=== PATIENT | male | born 1980 | race Two or more races ===

== ENCOUNTER 2017-02-03 08:32 | Inpatient (IN) | payer SELFPAY ==
[~2017-02-03] VITALS: Ht 172.7 cm; Wt 81.4 kg
[2017-02-03] MEDS ORDERED: ONDANSETRON PF 4 MG/2 ML VIAL. IV ONE (09:00)
[2017-02-03] MEDS ORDERED: fentaNYL PF VIAL 100 MCG/2 ML VIAL IV PRN ×2 (09:00→10:45)
--- NOTE | 2017-02-03 09:04 | PHYS DOC ---
Past Medical History Past Medical History: No Pertinent History Past Surgical History: Cholecystectomy Additional Past Surgical Histo: R LEG SX Alcohol Use: None Drug Use: None Adult General Chief Complaint Chief Complaint: ABDOMINAL PAIN HPI HPI Patient is a 36 year old male who presents with complaint of right upper quadrant abdominal and right flank pain. Patient states his symptoms have been worsening over the past 2 days. The patient was recently admitted to the hospital for treatment of acute cholecystitis and acute choledocholithiasis. Patient underwent an ERCP and cholecystectomy while in the hospital. The patient was noted to have elevated bilirubin levels and transaminase levels secondary to his condition. The patient initially improved and was discharged on January 21 with recommended follow-up in Dr. Valenzuela's clinic for removal of his KARYNA drain. The patient has not had this follow-up since his discharge. Patient states that he has been having worsening pain to his right upper quadrant which initially improved with use of pain medication. Patient states however says it wears off he starts having severe pain. Patient currently rates pain as 9 out of 10. Patient denies any nausea or vomiting. Patient states that he has had decreased output from his KARYNA drain but does state that it has been darker in appearance and has been more cloudy. Review of Systems Review of Systems Constitutional: Denies fever or chills [] Eyes: Denies change in visual acuity, redness, or eye pain [] HENT: Denies nasal congestion or sore throat [] Respiratory: Denies cough or shortness of breath [] Cardiovascular: Denies chest pain or edema[] GI: Abdominal pain, denies vomiting[] : Denies dysuria or hematuria [] Musculoskeletal: Denies back pain or joint pain [] Integument: Denies rash or skin lesions [] Neurologic: Denies headache, focal weakness or sensory changes [] All other systems were reviewed and found to be within normal limits, except as documented in this note. Current Medications Current Medications Current Medications Medications (Trade) Dose Ordered Sig/Roaxne Start Time Stop Time Status Last Admin Dose Admin Fentanyl Citrate (Fentanyl 2ml Vial) 50 mcg PRN Q15MIN PRN 02/03/17 09:00 02/04/17 08:59 02/03/17 09:21 50 MCG Ondansetron HCl (Zofran) 4 mg 1X ONCE 02/03/17 09:00 02/03/17 09:01 DC 02/03/17 09:20 4 MG Sodium Chloride 1,000 ml @ 2,310 mls/hr Q26M 02/03/17 08:56 02/03/17 09:56 DC 02/03/17 09:22 2,310 MLS/HR Allergies Allergies Allergies Coded Allergies Type Severity Reaction Last Updated Verified No Known Drug Allergies 01/19/17 No Physical Exam Physical Exam Constitutional: Alert, afebrile, appears in moderate to severe discomfort. [] HENT: Normocephalic, atraumatic, bilateral external ears normal, oropharynx moist, no oral exudates, nose normal. [] Eyes: PERRLA, EOMI, conjunctiva normal, no discharge. [] Neck: Normal range of motion, no tenderness, supple, no stridor. [] Cardiovascular: Tachycardia, regular rhythm, no murmur [] Lungs & Thorax: Bilateral breath sounds clear to auscultation [] Abdomen: Hypoactive bowel sounds, soft, right upper quadrant tenderness to palpation near KARYNA drain site, no masses, no pulsatile masses. [] Skin: Warm, dry, no erythema, no rash. [] Back: No tenderness, no CVA tenderness. [] Extremities: No tenderness, no cyanosis, no clubbing, ROM intact, no edema. [] Neurologic: Alert and oriented X 3, normal motor function, normal sensory function, no focal deficits noted. [] Current Patient Data Vital Signs Vital Signs Date Time Temp Pulse Resp B/P (MAP) Pulse Ox O2 Delivery O2 Flow Rate FiO2 02/03/17 10:10 98 14 114/78 (90) 98 Room Air 02/03/17 08:46 99.8 99.8 Lab Values Laboratory Tests Test 02/03/17 09:03 02/03/17 10:22 White Blood Count 14.5 x10^3/uL (4.0-11.0) H Red Blood Count 4.97 x10^6/uL (4.30-5.70) Hemoglobin 14.5 g/dL (13.0-17.5) Hematocrit 44.0 % (39.0-53.0) Mean Corpuscular Volume 89 fL (79-100) Mean Corpuscular Hemoglobin 29 pg (25-35) Mean Corpuscular Hemoglobin Concent 33 g/dL (31-37) Red Cell Distribution Width 14.1 % (11.5-14.5) Platelet Count 301 x10^3/uL (140-400) Neutrophils (%) (Auto) 77 % (31-73) H Lymphocytes (%) (Auto) 14 % (24-48) L Monocytes (%) (Auto) 7 % (0-9) Eosinophils (%) (Auto) 1 % (0-3) Basophils (%) (Auto) 1 % (0-3) Neutrophils # (Auto) 11.2 x10^3uL (1.8-7.7) H Lymphocytes # (Auto) 2.0 x10^3/uL (1.0-4.8) Monocytes # (Auto) 1.1 x10^3/uL (0.0-1.1) Eosinophils # (Auto) 0.1 x10^3/uL (0.0-0.7) Basophils # (Auto) 0.1 x10^3/uL (0.0-0.2) Sodium Level 137 mmol/L (136-145) Potassium Level 3.7 mmol/L (3.5-5.1) Chloride Level 100 mmol/L (98-107) Carbon Dioxide Level 28 mmol/L (21-32) Anion Gap 9 (6-14) Blood Urea Nitrogen 14 mg/dL (8-26) Creatinine 0.9 mg/dL (0.7-1.3) Estimated GFR (Cockcroft-Gault) 95.5 BUN/Creatinine Ratio 16 (6-20) Glucose Level 94 mg/dL (70-99) Lactic Acid Level 1.2 mmol/L (0.4-2.0) Calcium Level 9.4 mg/dL (8.5-10.1) Total Bilirubin 1.8 mg/dL (0.2-1.0) H Aspartate Amino Transferase (AST) 38 U/L (15-37) H Alanine Aminotransferase (ALT) 104 U/L (16-63) H Alkaline Phosphatase 180 U/L (46-116) H Total Protein 8.0 g/dL (6.4-8.2) Albumin 3.1 g/dL (3.4-5.0) L Albumin/Globulin Ratio 0.6 (1.0-1.7) L Lipase 64 U/L (73-393) L Urine Collection Type Unknown Urine Color [place] Urine Clarity Clear Urine pH 6.0 Urine Specific [place] >=1.030 Urine Protein 30 mg/dL (NEG-TRACE) Urine Glucose (UA) Negative mg/dL (NEG) Urine Ketones (Stick) >=80 mg/dL (NEG) Urine Blood Negative (NEG) Urine Nitrite Negative (NEG) Urine Bilirubin Moderate (NEG) Urine Urobilinogen Dipstick 4.0 mg/dL (0.2 mg/dL) Urine Leukocyte Esterase Small (NEG) Urine RBC 0 /HPF (0-2) Urine WBC 0 /HPF (0-4) Urine Bacteria Moderate /HPF (0-FEW) Urine Mucus Marked /LPF Laboratory Tests 02/03/17 09:03 Laboratory Tests 02/03/17 09:03 EKG EKG Interpreted by me: Heart rate 105, sinus tachycardia, normal intervals, normal axis, no acute ST/T-wave abnormalities present[] Radiology/Procedures Radiology/Procedures [facility] [address] [place] [address] IMAGING REPORT Signed PATIENT: VIRAL FARIAS ACCOUNT: [id number] : 1980 LOCATION: [address] [place] [address] AGE: 36 SEX: M EXAM STATUS: ADM IN ORD. PHYSICIAN: DU BRITO MD REASON: right upper quadrant pain, recent cholecystectomy PROCEDURE: CT ABD PELV W/ IV CONTRST ONLY CT of the abdomen and pelvis with contrast 02/03/2017 Indication: Right upper abdominal pain. Recent cholecystectomy. Comparison study: CT of the abdomen and pelvis with contrast January 12, 2017. Technique: Multidetector CT imaging of the abdomen and pelvis was performed following the administration of IV contrast. Findings: Linear opacities noted in the bilateral lung bases consistent with discoid atelectasis. The liver is unremarkable in appearance. No intrahepatic biliary dilatation is seen. Surgical clips in the gallbladder fossa noted consistent with prior history of recent cholecystectomy. Scant amount of fluid and gas is seen in the gallbladder fossa most likely postoperative in nature. There is a surgical drain in place extending throughout the right upper quadrant into the right mid abdomen.. There is inflammatory change surrounding the drainage catheter within the adjacent mesenteric fat. No loculated fluid collection or abscess is identified. Correlate with drain output. The spleen, adrenal glands, kidneys, and pancreas are grossly unremarkable. There is no evidence of bowel obstruction. The appendix is unremarkable in appearance. Bladder is grossly unremarkable. No acute osseous changes are seen. Impression: Postsurgical changes consistent with recent cholecystectomy. There is a right-sided surgical drain in place with adjacent inflammatory changes within the mesentery. No loculated fluid collection or abscess is identified. Correlate with drain output. No other acute intra-abdominal abnormality is identified DICTATED and SIGNED BY: SABRINA FANG MD DATE: 02/03/17 1113 CC: DU BRITO MD; MUSTAPHA DEL VALLE MD; KIMANI GARCIA M.D. ~ [] Course & Med Decision Making Course & Med Decision Making Pertinent Labs and Imaging studies reviewed. (See chart for details) Patient started on IV fluids in the emergency department with improvement in heart rate. Based off of exam and lab work, I am suspicious that the patient's symptoms could be due to possible postoperative infection at the KARYNA drain site. I spoke with Dr. Valenzuela of general surgery. He agreed with initiation of antibiotics and agreed to consult on patient in hospital for further care. I spoke with Dr. Del Valle who accepted care patient in hospital. Patient started on IV vancomycin and Zosyn. Dragon Disclaimer Dragon Disclaimer This electronic medical record was generated, in whole or in part, using a voice recognition dictation system. Departure Departure Impression: Primary Impression: Sepsis Additional Impressions: Abdominal pain Elevated transaminase level Disposition: ADMITTED INPATIENT Admitting Physician: Other Condition: GUARDED Referrals: KIMANI GARCIA M.D. (PCP) Scripts No Active Prescriptions or Reported Meds Problem Qualifiers Primary Impression: Sepsis Sepsis type: sepsis due to unspecified organism Qualified Codes: A41.9 - Sepsis, unspecified organism Additional Impressions: Abdominal pain Abdominal location: right upper quadrant Qualified Codes: R10.11 - Right upper quadrant pain DU BRITO MD Feb 03, 2017 09:04
[2017-02-03] MEDS: IV NORMAL SALINE 1000ML BAG 1,000 ML IV SCH ×5 (09:21→17:35)
--- NOTE | 2017-02-03 09:22 | EKG ---
[facility] [address] [place] [address] Test Date: 2017-02-03 Test Time: 09:18:01 Pat Name: VIRAL FARIAS Department: Room: Gender: M [employer] Operator: : 1980 Requested By: DU BRITO Order Number: [id number] Reading MD: Golden Roberts Measurements Intervals [place] Rate: 105 P: 25 MN: 154 QRS: 56 QRSD: 90 T: 31 QT: 310 QTc: 413 Interpretive Statements SINUS TACHYCARDIA Electronically Signed On 02-13-2017 14:09:59 [employer] by Golden Roberts
[2017-02-03 09:42] LABS: CALCIUM 9.4 mg/dL (8.5-10.1); CREATININE 0.9 mg/dL (0.7-1.3); GFR 95.5; POTASSIUM 3.7 mmol/L (3.5-5.1)
[2017-02-03 10:09] LABS: ALBUMIN 3.1 g/dL (3.4-5.0); ALBUMIN/GLOBULIN RATIO 0.6 (1.0-1.7); TOTAL BILIRUBIN 1.8 mg/dL (0.2-1.0)
[2017-02-03 10:19] LABS: BASO # 0.1 x10^3/uL (0.0-0.2); BASO % 1 % (0-3); EOS % 1 % (0-3); HEMOGLOBIN 14.5 g/dL (13.0-17.5); LYMPH % 14 % (24-48); MEAN CORPUSCULAR HEMOGLOBIN 29 pg (25-35); MEAN CORPUSCULAR HGB CONC 33 g/dL (31-37); MEAN CORPUSCULAR VOLUME 89 fL (79-100); MONO % 7 % (0-9); NEUT % 77 % (31-73); PLATELET COUNT 301 x10^3/uL (140-400); RED BLOOD COUNT 4.97 x10^6/uL (4.30-5.70); RED CELL DISTRIBUTION WIDTH 14.1 % (11.5-14.5); WHITE BLOOD COUNT 14.5 x10^3/uL (4.0-11.0)
[2017-02-03 10:36] LABS: BILIRUBIN,URINE MODERATE (NEG); GLUCOSE,URINE NEGATIVE (NEG); NITRITE,URINE NEGATIVE (NEG); PROTEIN,URINE 30 mg/dL (NEG-TRACE)
[2017-02-03] MEDS ORDERED: ONDANSETRON PF 4 MG/2 ML VIAL. IV PRN (10:45)
[2017-02-03] MEDS ORDERED: PIP/TAZO PER PHARMACY MC PRN (10:45)
[2017-02-03] MEDS ORDERED: CONTRAST GIVEN MC PRN (10:45)
[2017-02-03] MEDS ORDERED: IOHEXOL 300 MG/ML 100ML VIAL. IV ONE (10:45)
[2017-02-03] MEDS ORDERED: ACETAMINOPHEN 325 MG TABLET. PO PRN (10:45)
[2017-02-03 10:53] LABS: BACTERIA,URINE MODERATE /HPF (0-FEW); RBC,URINE 0 /HPF (0-2); WBC,URINE 0 /HPF (0-4)
[2017-02-03] MEDS ORDERED: VANCOMYCIN 2 GM in IV DEXTROSE 5 %-0.2 % NACL 500 ML IV ONE (11:00)
[2017-02-03] MEDS ORDERED: PIPERACILLIN/TAZO IV Push 3.375 GM VIAL. IVP ONE (11:00)
--- NOTE | 2017-02-03 11:27 | RAD ---
CT of the abdomen and pelvis with contrast 02/03/2017 Indication: Right upper abdominal pain. Recent cholecystectomy. Comparison study: CT of the abdomen and pelvis with contrast January 12, 2017. Technique: Multidetector CT imaging of the abdomen and pelvis was performed following the administration of IV contrast. Findings: Linear opacities noted in the bilateral lung bases consistent with discoid atelectasis. The liver is unremarkable in appearance. No intrahepatic biliary dilatation is seen. Surgical clips in the gallbladder fossa noted consistent with prior history of recent cholecystectomy. Scant amount of fluid and gas is seen in the gallbladder fossa most likely postoperative in nature. There is a surgical drain in place extending throughout the right upper quadrant into the right mid abdomen.. There is inflammatory change surrounding the drainage catheter within the adjacent mesenteric fat. No loculated fluid collection or abscess is identified. Correlate with drain output. The spleen, adrenal glands, kidneys, and pancreas are grossly unremarkable. There is no evidence of bowel obstruction. The appendix is unremarkable in appearance. Bladder is grossly unremarkable. No acute osseous changes are seen. Impression: Postsurgical changes consistent with recent cholecystectomy. There is a right-sided surgical drain in place with adjacent inflammatory changes within the mesentery. No loculated fluid collection or abscess is identified. Correlate with drain output. No other acute intra-abdominal abnormality is identified
[2017-02-03] MEDS: VANCOMYCIN PER PHARMACY MC PRN (11:32)
[2017-02-03 12:48] VITALS: BP 114/77
[2017-02-03 12:50] VITALS: BP 114/77
--- NOTE | 2017-02-03 14:14 | PDOC2 ---
CONSULT Date of Consult Date of Consult DATE: 02/03/17 TIME: 14:12 History of Present Illness Reason for Visit: The patient is a 36 year old male with recent history of lap carlo, ERCP and stone extraction X 2. Had drain placed with FU appt next week in office for drain removal. He reported to the ER with sharp Rt sided abdominal pain, no nausea or vomiting. Past Medical History Past Medical History denies Past Surgical History Past Surgical History lap carlo, ERCP Social History No ALCOHOL: rare Drugs: None Current Problem List Problem List Problems Medical Problems: (1) Elevated transaminase level Status: Acute Current Medications Current Medications Current Medications Sodium Chloride 1,000 ml @ 2,310 mls/hr Q26M IV Last administered on 09:22; Start 02/03/17 at 08:56; Stop 02/03/17 at 09:56; Status DC Fentanyl Citrate (Fentanyl 2ml Vial) 50 mcg PRN Q15MIN PRN IV PAIN GREATER THAN 3/10 Last administered on 02/03/17 09:21; Start 02/03/17 at 09:00; Stop 02/04/17 at 08:59 Ondansetron HCl (Zofran) 4 mg 1X ONCE IV Last administered on 02/03/17 09:20 ; Start 02/03/17 at 09:00; Stop 02/03/17 at 09:01; Status DC Iohexol (Omnipaque 300 Mg/ml) 75 ml 1X ONCE IV Last administered on 11:09; Start 02/03/17 at 10:45; Stop 02/03/17 at 10:46; Status DC Info (Do NOT chart on this entry -- for MONITORING) 1 each PRN DAILY PRN MC SEE COMMENTS; Start 02/03/17 at 10:45; Stop 02/05/17 at 10:44 Ondansetron HCl (Zofran) 4 mg PRN Q8HRS PRN IV NAUSEA/VOMITING; Start at 10:45; Stop 02/04/17 at 10:44 Fentanyl Citrate (Fentanyl 2ml Vial) 50 mcg PRN Q2HR PRN IV PAIN Last administered on 02/03/17 13:36; Start 02/03/17 at 10:45; Stop 02/04/17 at 10 :44 Sodium Chloride 1,000 ml @ 150 mls/hr Q6H40M IV Last administered on 13:36; Start 02/03/17 at 10:44; Stop 02/04/17 at 10:43 Acetaminophen (Tylenol) 650 mg PRN Q4HRS PRN PO FEVER; Start 02/03/17 at 10:45 ; Stop 02/04/17 at 10:44 Vancomycin HCl (Vanco Per Pharmacy) 1 each PRN DAILY PRN MC SEE COMMENTS Last administered on 02/03/17 11:32; Start 02/03/17 at 10:45 Piperacillin Sod/ Tazobactam Sod (Zosyn Per Pharmacy) 1 each PRN DAILY PRN MC SEE COMMENTS; Start 02/03/17 at 10:45 Vancomycin HCl 2 gm/Dextrose/ Sodium Chloride 500 ml @ 250 mls/hr 1X ONCE IV Last administered on 02/03/17 11:26; Start 02/03/17 at 11:00; Stop 02/03/17 at 12:59; Status DC Piperacillin Sod/ Tazobactam Sod (Zosyn) 3.375 gm 1X ONCE IVP Last administered on 02/03/17 11:18; Start 02/03/17 at 11:00; Stop 02/03/17 at 11 :01; Status DC Piperacillin Sod/ Tazobactam Sod (Zosyn) 3.375 gm Q6HRS IVP ; Start 02/03/17 at 18:00 Vancomycin HCl 1.25 gm/Dextrose 250 ml @ 167 mls/hr Q8H IV ; Start 02/03/17 at 19:30 Vancomycin HCl 1 each 1X ONCE MC ; Start 02/04/17 at 11:00; Stop 02/04/17 at 11:01 Active Scripts Active No Active Prescriptions or Reported Medications Allergies Allergies: Coded Allergies: No Known Drug Allergies (Unverified , 01/19/17) ROS General: No: Chills, Night Sweats, Fatigue, Malaise, Appetite, Other PSYCHOLOGICAL ROS: No: Anxiety, Behavioral Disorder, Concentration difficultie , Decreased libido, Depression, Disorientation, Hallucinations, Hostility, Irritablity, Memory difficulties, Mood Swings, Obsessive thoughts, Physical abuse, Sexual abuse, Sleep disturbances, Suicidal ideation, Other Eyes: No Blurry vision, No Decreased vision, No Double vision, No Dry eyes, No Excessive tearing, No Eye Pain, No Itchy Eyes, No Loss of vision, No Photophobia , No Scotomata, No Uses contacts, No Uses glasses, No Other HEENT: No: Heacaches, Visual Changes, Hearing change, Nasal congestion, Nasal discharge, Oral lesions, Sinus pain, Sore Throat, Epistaxis, Sneezing, Snoring, Tinnitus, Vertigo, Vocal changes, Other ALLERGY AND IMMUNOLOGY: No: Hives, Insect Bite Sensitivity, Itchy/Watery Eyes, Nasal Congestion, Post Nasal Drip, Seasonal Allergies, Other Hematological and Lymphatic: No: Bleeding Problems, Blood Clots, Blood Transfusions, Brusing, Night Sweats, Pallor, Swollen Lymph Nodes, Other Respiratory: No: Cough, Hemoptysis, Orthopnea, Pleuritic Pain, Shortness of breath, SOB with excertion, Sputum Changes, Stridor, Tachypnea, Wheezing, Other Cardiovascular: No Chest Pain, No Palpitations, No Orthopnea, No Paroxysmal Noc. Dyspnea, No Edema, No Lt Headedness, No Other Gastrointestinal: Yes Abdominal Pain Genitourinary: No Dysuria, No Frequency, No Incontinence, No Hematuria, No Retention, No Discharge, No Urgency, No Pain, No Flank Pain, No Other, No , No , No , No , No , No , No Musculoskeletal: No Gait Disturbance, No Joint Pain, No Joint Stiffness, No Joint Swelling, No Muscle Pain, No Muscular Weakness, No Pain In:, No Swelling In:, No Other Neurological: No Behavorial Changes, No Bowel/Bladder ControlChng, No Confusion , No Dizziness, No Gait Disturbance, No Headaches, No Impaired Coord/balance, No Memory Loss, No Numbness/Tingling, No Seizures, No Speech Problems, No Tremors, No Visual Changes, No Weakness, No Other Skin: No Dry Skin, No Eczema, No Hair Changes, No Lumps, No Mole Changes, No Mottling, No Nail Changes, No Pruritus, No Rash, No Skin Lesion Changes, No Other, No Acne Physical Exam General: Alert, Oriented X3, Cooperative HEENT: Atraumatic Lungs: Clear to auscultation Heart: Regular rate Abdomen: Soft (KARYNA drain in place with serous fluid) Extremities: No clubbing, No cyanosis Skin: No rashes Neuro: Normal gait, Strength at 5/5 X4 ext Psych/Mental Status: Mental status NL MUSCULOSKELETAL: No joint tenderness, No deformity Vitals VITALS Vital Signs Date Time Temp Pulse Resp B/P (MAP) Pulse Ox O2 Delivery O2 Flow Rate FiO2 02/03/17 13:36 96 Room Air 02/03/17 12:50 97.7 102 16 114/77 (89) 97.7 Labs Labs Laboratory Tests Test 02/03/17 09:03 02/03/17 10:22 White Blood Count 14.5 x10^3/uL (4.0-11.0) Red Blood Count 4.97 x10^6/uL (4.30-5.70) Hemoglobin 14.5 g/dL (13.0-17.5) Hematocrit 44.0 % (39.0-53.0) Mean Corpuscular Volume 89 fL (79-100) Mean Corpuscular Hemoglobin 29 pg (25-35) Mean Corpuscular Hemoglobin Concent 33 g/dL (31-37) Red Cell Distribution Width 14.1 % (11.5-14.5) Platelet Count 301 x10^3/uL (140-400) Neutrophils (%) (Auto) 77 % (31-73) Lymphocytes (%) (Auto) 14 % (24-48) Monocytes (%) (Auto) 7 % (0-9) Eosinophils (%) (Auto) 1 % (0-3) Basophils (%) (Auto) 1 % (0-3) Neutrophils # (Auto) 11.2 x10^3uL (1.8-7.7) Lymphocytes # (Auto) 2.0 x10^3/uL (1.0-4.8) Monocytes # (Auto) 1.1 x10^3/uL (0.0-1.1) Eosinophils # (Auto) 0.1 x10^3/uL (0.0-0.7) Basophils # (Auto) 0.1 x10^3/uL (0.0-0.2) Sodium Level 137 mmol/L (136-145) Potassium Level 3.7 mmol/L (3.5-5.1) Chloride Level 100 mmol/L (98-107) Carbon Dioxide Level 28 mmol/L (21-32) Anion Gap 9 (6-14) Blood Urea Nitrogen 14 mg/dL (8-26) Creatinine 0.9 mg/dL (0.7-1.3) Estimated GFR (Cockcroft-Gault) 95.5 BUN/Creatinine Ratio 16 (6-20) Glucose Level 94 mg/dL (70-99) Lactic Acid Level 1.2 mmol/L (0.4-2.0) Calcium Level 9.4 mg/dL (8.5-10.1) Total Bilirubin 1.8 mg/dL (0.2-1.0) Aspartate Amino Transf (AST/SGOT) 38 U/L (15-37) Alanine Aminotransferase (ALT/SGPT) 104 U/L (16-63) Alkaline Phosphatase 180 U/L (46-116) Total Protein 8.0 g/dL (6.4-8.2) Albumin 3.1 g/dL (3.4-5.0) Albumin/Globulin Ratio 0.6 (1.0-1.7) Lipase 64 U/L (73-393) Urine Collection Type Unknown Urine Color [place] Urine Clarity Clear Urine pH 6.0 Urine Specific [place] >=1.030 Urine Protein 30 mg/dL (NEG-TRACE) Urine Glucose (UA) Negative mg/dL (NEG) Urine Ketones (Stick) >=80 mg/dL (NEG) Urine Blood Negative (NEG) Urine Nitrite Negative (NEG) Urine Bilirubin Moderate (NEG) Urine Urobilinogen Dipstick 4.0 mg/dL (0.2 mg/dL) Urine Leukocyte Esterase Small (NEG) Urine RBC 0 /HPF (0-2) Urine WBC 0 /HPF (0-4) Urine Bacteria Moderate /HPF (0-FEW) Urine Mucus Marked /LPF Laboratory Tests Test 02/03/17 09:03 02/03/17 10:22 White Blood Count 14.5 x10^3/uL (4.0-11.0) Red Blood Count 4.97 x10^6/uL (4.30-5.70) Hemoglobin 14.5 g/dL (13.0-17.5) Hematocrit 44.0 % (39.0-53.0) Mean Corpuscular Volume 89 fL (79-100) Mean Corpuscular Hemoglobin 29 pg (25-35) Mean Corpuscular Hemoglobin Concent 33 g/dL (31-37) Red Cell Distribution Width 14.1 % (11.5-14.5) Platelet Count 301 x10^3/uL (140-400) Neutrophils (%) (Auto) 77 % (31-73) Lymphocytes (%) (Auto) 14 % (24-48) Monocytes (%) (Auto) 7 % (0-9) Eosinophils (%) (Auto) 1 % (0-3) Basophils (%) (Auto) 1 % (0-3) Neutrophils # (Auto) 11.2 x10^3uL (1.8-7.7) Lymphocytes # (Auto) 2.0 x10^3/uL (1.0-4.8) Monocytes # (Auto) 1.1 x10^3/uL (0.0-1.1) Eosinophils # (Auto) 0.1 x10^3/uL (0.0-0.7) Basophils # (Auto) 0.1 x10^3/uL (0.0-0.2) Sodium Level 137 mmol/L (136-145) Potassium Level 3.7 mmol/L (3.5-5.1) Chloride Level 100 mmol/L (98-107) Carbon Dioxide Level 28 mmol/L (21-32) Anion Gap 9 (6-14) Blood Urea Nitrogen 14 mg/dL (8-26) Creatinine 0.9 mg/dL (0.7-1.3) Estimated GFR (Cockcroft-Gault) 95.5 BUN/Creatinine Ratio 16 (6-20) Glucose Level 94 mg/dL (70-99) Lactic Acid Level 1.2 mmol/L (0.4-2.0) Calcium Level 9.4 mg/dL (8.5-10.1) Total Bilirubin 1.8 mg/dL (0.2-1.0) Aspartate Amino Transf (AST/SGOT) 38 U/L (15-37) Alanine Aminotransferase (ALT/SGPT) 104 U/L (16-63) Alkaline Phosphatase 180 U/L (46-116) Total Protein 8.0 g/dL (6.4-8.2) Albumin 3.1 g/dL (3.4-5.0) Albumin/Globulin Ratio 0.6 (1.0-1.7) Lipase 64 U/L (73-393) Urine Collection Type Unknown Urine Color [place] Urine Clarity Clear Urine pH 6.0 Urine Specific [place] >=1.030 Urine Protein 30 mg/dL (NEG-TRACE) Urine Glucose (UA) Negative mg/dL (NEG) Urine Ketones (Stick) >=80 mg/dL (NEG) Urine Blood Negative (NEG) Urine Nitrite Negative (NEG) Urine Bilirubin Moderate (NEG) Urine Urobilinogen Dipstick 4.0 mg/dL (0.2 mg/dL) Urine Leukocyte Esterase Small (NEG) Urine RBC 0 /HPF (0-2) Urine WBC 0 /HPF (0-4) Urine Bacteria Moderate /HPF (0-FEW) Urine Mucus Marked /LPF Images Images CT abdomen: Impression: Postsurgical changes consistent with recent cholecystectomy. There is a right-sided surgical drain in place with adjacent inflammatory changes within the mesentery. No loculated fluid collection or abscess is identified. Correlate with drain output. No other acute intra-abdominal abnormality is identifie Assessment/Plan Assessment/Plan S/P lap carlo/ERCP, recent Rt sided abdominal pain. KARYNA drain removed at bedside. CT unremarkable for abscess or other process. Follow LFTs, no other surgical recs GARY ORTEGA MD Feb 03, 2017 14:14
[2017-02-03 15:14] VITALS: BP 100/67
--- NOTE | 2017-02-03 16:51 | HP ---
ADMIT DATE: 02/03/2017 CHIEF COMPLAINT: Abdominal pain. HISTORY OF PRESENT ILLNESS: The patient is a 36-year-old with a recent history of lap carlo as well as ERCP with stone extraction x 2 on 01/20/2017, who presented to the Emergency Room with worsening pain in his right upper quadrant. His KARYNA was still in place and he had a followup with [facility] in 5 days. However, he had run out of pain medications and the pain became progressively worse. He denies any fevers or chills, any nausea or vomiting. He was able to eat without any difficulties. Denies any other symptoms. In the Emergency Room, a CT of the abdomen was obtained showing post-surgical changes consistent with recent cholecystectomy. A surgical drain in place with adjacent inflammatory changes. No fluid collection or abscess was identified. The drain since has been pulled by Dr. Valenzuela and pain seems to be improving. The patient relates that prior to today, he was draining about 15 mL at a time. PAST MEDICAL HISTORY: GERD, history of leg fracture with ORIF, etc. FAMILY HISTORY: Positive for mother with gastric cancer. Aunt with hepatitis. SOCIAL HISTORY: Lives with his family. He does not smoke. Drinks alcohol only rarely. No drugs. ALLERGIES: No known drug allergies. MEDICATIONS: MAR reconciled with home medications. REVIEW OF SYSTEMS: Positive as per HPI. Rest of organ system reviewed, does not yield any positive findings. PHYSICAL EXAMINATION: VITAL SIGNS: From today show a blood pressure of 114/77, heart rate at 102. He is afebrile, respiratory rate at 16. GENERAL: This is a well-nourished 36-year-old gentleman, alert and oriented, in no acute distress. HEENT: Shows no scleral icterus. NECK: Supple. LUNGS: Clear. HEART: Regular rate and rhythm. ABDOMEN: Has positive bowel sounds, soft. Tenderness to palpation at prior drain site, moderate. EXTREMITIES: Show no edema. SKIN: Warm, soft and dry. NEUROLOGIC: He appears grossly intact. LABORATORY DATA: CBC with a WBC of 14.5, hemoglobin 14.5, platelets of 301. Chemistries with a BUN and creatinine of 14 and 0.9. Normal electrolytes. Bili is still elevated at 1.8, but down from 3.1 at the time of discharge on 01/20. Transaminases likewise significantly decreased at 104 and 180 today. Albumin at 3.1. ASSESSMENT AND PLAN: The patient is a 36-year-old gentleman status post cholecystectomy with drain still in place. This apparently has caused an inflammatory reaction at the site, but no evidence of infection is visible. Drain has been discontinued. We will observe for 24 hours. Doubt he will develop any infectious symptoms at this time. Hopefully, if he remains stable, he should be able to return to home tomorrow. MUSTAPHA ARNOLD MD DR: UR/nts JOB#: [id number] / [id number] KIMANI Salgado MD MTDD
[2017-02-03] MEDS: oxyCODONE IR 5 MG TABLET PO PRN (18:49)
[2017-02-03] MEDS: PIPERACILLIN/TAZO IV Push 3.375 GM VIAL. IVP SCH (18:50)
[2017-02-03 19:33] VITALS: BP 105/66
[2017-02-03] MEDS: LACTOBACILLUS RHAMNOSUS GG 1 CAPSULE. PO SCH (20:04)
[2017-02-03] MEDS: VANCOMYCIN 1.25 GM in IV DEXTROSE 5% 250 ML IV SCH (20:06)
[2017-02-03 23:08] VITALS: BP 106/69
[2017-02-04] MEDS: PIPERACILLIN/TAZO IV Push 3.375 GM VIAL. IVP SCH ×3 (01:51→12:18)
[2017-02-04] MEDS: oxyCODONE IR 5 MG TABLET PO PRN ×2 (01:51→08:23)
[2017-02-04] MEDS: IV NORMAL SALINE 1000ML BAG 1,000 ML IV SCH ×2 (01:53→06:44)
[2017-02-04 03:11] VITALS: BP 101/67
[2017-02-04] MEDS: VANCOMYCIN 1.25 GM in IV DEXTROSE 5% 250 ML IV SCH ×2 (04:19→12:19)
[2017-02-04 05:09] LABS: BASO % 1 % (0-3); EOS % 3 % (0-3); HEMATOCRIT 36.1 % (39.0-53.0); HEMOGLOBIN 12.4 g/dL (13.0-17.5); LYMPH # 1.9 x10^3/uL (1.0-4.8); LYMPH % 20 % (24-48); MEAN CORPUSCULAR HEMOGLOBIN 30 pg (25-35); MEAN CORPUSCULAR HGB CONC 34 g/dL (31-37); MEAN CORPUSCULAR VOLUME 88 fL (79-100); MONO % 7 % (0-9); NEUT % 69 % (31-73); PLATELET COUNT 264 x10^3/uL (140-400); RED CELL DISTRIBUTION WIDTH 13.7 % (11.5-14.5); WHITE BLOOD COUNT 9.3 x10^3/uL (4.0-11.0)
[2017-02-04 05:46] LABS: CALCIUM 8.5 mg/dL (8.5-10.1); CREATININE 0.8 mg/dL (0.7-1.3); GFR 109.4; POTASSIUM 3.8 mmol/L (3.5-5.1)
[2017-02-04 07:00] VITALS: BP 117/82
[2017-02-04] MEDS: LACTOBACILLUS RHAMNOSUS GG 1 CAPSULE. PO SCH (08:23)
[2017-02-04 10:58] VITALS: BP 121/78
[2017-02-04] MEDS: VANCOMYCIN PER PHARMACY MC PRN (12:36)
--- NOTE | 2017-02-04 13:40 | PDOC ---
SURGICAL PROGRESS NOTE Subjective Pt reports feeling better, darshana PO well Vital Signs Vital Signs Date Time Temp Pulse Resp B/P (MAP) Pulse Ox O2 Delivery O2 Flow Rate FiO2 02/04/17 10:58 98.4 80 16 121/78 (92) 99 Room Air 98.4 I&O Intake and Output 02/04/17 07:00 Intake Total 2520 ml Balance 2520 ml Intake Oral 520 ml IV Total 2000 ml # Voids 3 General: Alert, Oriented X3, Cooperative, No acute distress Abdomen: Soft, Other (mild TTP around drain site) Labs Laboratory Tests Test 02/03/17 09:03 02/03/17 10:22 02/04/17 04:55 02/04/17 11:15 White Blood Count 14.5 x10^3/uL (4.0-11.0) 9.3 x10^3/uL (4.0-11.0) Red Blood Count 4.97 x10^6/uL (4.30-5.70) 4.10 x10^6/uL (4.30-5.70) Hemoglobin 14.5 g/dL (13.0-17.5) 12.4 g/dL (13.0-17.5) Hematocrit 44.0 % (39.0-53.0) 36.1 % (39.0-53.0) Mean Corpuscular Volume 89 fL (79-100) 88 fL (79-100) Mean Corpuscular Hemoglobin 29 pg (25-35) 30 pg (25-35) Mean Corpuscular Hemoglobin Concent 33 g/dL (31-37) 34 g/dL (31-37) Red Cell Distribution Width 14.1 % (11.5-14.5) 13.7 % (11.5-14.5) Platelet Count 301 x10^3/uL (140-400) 264 x10^3/uL (140-400) Neutrophils (%) (Auto) 77 % (31-73) 69 % (31-73) Lymphocytes (%) (Auto) 14 % (24-48) 20 % (24-48) Monocytes (%) (Auto) 7 % (0-9) 7 % (0-9) Eosinophils (%) (Auto) 1 % (0-3) 3 % (0-3) Basophils (%) (Auto) 1 % (0-3) 1 % (0-3) Neutrophils # (Auto) 11.2 x10^3uL (1.8-7.7) 6.4 x10^3uL (1.8-7.7) Lymphocytes # (Auto) 2.0 x10^3/uL (1.0-4.8) 1.9 x10^3/uL (1.0-4.8) Monocytes # (Auto) 1.1 x10^3/uL (0.0-1.1) 0.6 x10^3/uL (0.0-1.1) Eosinophils # (Auto) 0.1 x10^3/uL (0.0-0.7) 0.3 x10^3/uL (0.0-0.7) Basophils # (Auto) 0.1 x10^3/uL (0.0-0.2) 0.0 x10^3/uL (0.0-0.2) Sodium Level 137 mmol/L (136-145) 140 mmol/L (136-145) Potassium Level 3.7 mmol/L (3.5-5.1) 3.8 mmol/L (3.5-5.1) Chloride Level 100 mmol/L (98-107) 105 mmol/L (98-107) Carbon Dioxide Level 28 mmol/L (21-32) 29 mmol/L (21-32) Anion Gap 9 (6-14) 6 (6-14) Blood Urea Nitrogen 14 mg/dL (8-26) 7 mg/dL (8-26) Creatinine 0.9 mg/dL (0.7-1.3) 0.8 mg/dL (0.7-1.3) Estimated GFR (Cockcroft-Gault) 95.5 109.4 BUN/Creatinine Ratio 16 (6-20) Glucose Level 94 mg/dL (70-99) 97 mg/dL (70-99) Lactic Acid Level 1.2 mmol/L (0.4-2.0) Calcium Level 9.4 mg/dL (8.5-10.1) 8.5 mg/dL (8.5-10.1) Total Bilirubin 1.8 mg/dL (0.2-1.0) Aspartate Amino Transf (AST/SGOT) 38 U/L (15-37) Alanine Aminotransferase (ALT/SGPT) 104 U/L (16-63) Alkaline Phosphatase 180 U/L (46-116) Total Protein 8.0 g/dL (6.4-8.2) Albumin 3.1 g/dL (3.4-5.0) Albumin/Globulin Ratio 0.6 (1.0-1.7) Lipase 64 U/L (73-393) Urine Collection Type Unknown Urine Color [place] Urine Clarity Clear Urine pH 6.0 Urine Specific [place] >=1.030 Urine Protein 30 mg/dL (NEG-TRACE) Urine Glucose (UA) Negative mg/dL (NEG) Urine Ketones (Stick) >=80 mg/dL (NEG) Urine Blood Negative (NEG) Urine Nitrite Negative (NEG) Urine Bilirubin Moderate (NEG) Urine Urobilinogen Dipstick 4.0 mg/dL (0.2 mg/dL) Urine Leukocyte Esterase Small (NEG) Urine RBC 0 /HPF (0-2) Urine WBC 0 /HPF (0-4) Urine Bacteria Moderate /HPF (0-FEW) Urine Mucus Marked /LPF Vancomycin Level Trough 14.1 mcg/mL (10.0-20.0) Vancomycin Last Dose Date 02/04/17 Vancomycin Last Dose Time 0330 Laboratory Tests Test 02/04/17 04:55 02/04/17 11:15 White Blood Count 9.3 x10^3/uL (4.0-11.0) Red Blood Count 4.10 x10^6/uL (4.30-5.70) Hemoglobin 12.4 g/dL (13.0-17.5) Hematocrit 36.1 % (39.0-53.0) Mean Corpuscular Volume 88 fL (79-100) Mean Corpuscular Hemoglobin 30 pg (25-35) Mean Corpuscular Hemoglobin Concent 34 g/dL (31-37) Red Cell Distribution Width 13.7 % (11.5-14.5) Platelet Count 264 x10^3/uL (140-400) Neutrophils (%) (Auto) 69 % (31-73) Lymphocytes (%) (Auto) 20 % (24-48) Monocytes (%) (Auto) 7 % (0-9) Eosinophils (%) (Auto) 3 % (0-3) Basophils (%) (Auto) 1 % (0-3) Neutrophils # (Auto) 6.4 x10^3uL (1.8-7.7) Lymphocytes # (Auto) 1.9 x10^3/uL (1.0-4.8) Monocytes # (Auto) 0.6 x10^3/uL (0.0-1.1) Eosinophils # (Auto) 0.3 x10^3/uL (0.0-0.7) Basophils # (Auto) 0.0 x10^3/uL (0.0-0.2) Sodium Level 140 mmol/L (136-145) Potassium Level 3.8 mmol/L (3.5-5.1) Chloride Level 105 mmol/L (98-107) Carbon Dioxide Level 29 mmol/L (21-32) Anion Gap 6 (6-14) Blood Urea Nitrogen 7 mg/dL (8-26) Creatinine 0.8 mg/dL (0.7-1.3) Estimated GFR (Cockcroft-Gault) 109.4 Glucose Level 97 mg/dL (70-99) Calcium Level 8.5 mg/dL (8.5-10.1) Vancomycin Level Trough 14.1 mcg/mL (10.0-20.0) Vancomycin Last Dose Date 02/04/17 Vancomycin Last Dose Time 0330 Problem List Problems Medical Problems: (1) Elevated transaminase level Status: Acute Assessment/Plan drain infection, resolving appears to be improved OK to d/c home f/u with [facility] recommend PO abx Problems: TERRI BALTAZAR MD Feb 04, 2017 13:40
[2017-02-04] MEDS ORDERED: AMOX1TAB58 PO (14:10)
--- NOTE | 2017-02-04 14:12 | PDOC3 ---
Discharge Summary Visit Information Date of Admission: Feb 03, 2017 Date of Discharge: Feb 04, 2017 Final Diagnosis Problems Medical Problems: (1) Elevated transaminase level Status: Acute Brief Hospital Course Allergies Allergies Coded Allergies Type Severity Reaction Last Updated Verified No Known Drug Allergies 01/19/17 No Vital Signs Vital Signs Date Time Temp Pulse Resp B/P (MAP) Pulse Ox O2 Delivery O2 Flow Rate FiO2 02/04/17 10:58 98.4 80 16 121/78 (92) 99 Room Air 98.4 Lab Results Laboratory Tests Test 02/03/17 09:03 02/03/17 10:22 02/04/17 04:55 02/04/17 11:15 White Blood Count 14.5 x10^3/uL (4.0-11.0) 9.3 x10^3/uL (4.0-11.0) Red Blood Count 4.97 x10^6/uL (4.30-5.70) 4.10 x10^6/uL (4.30-5.70) Hemoglobin 14.5 g/dL (13.0-17.5) 12.4 g/dL (13.0-17.5) Hematocrit 44.0 % (39.0-53.0) 36.1 % (39.0-53.0) Mean Corpuscular Volume 89 fL (79-100) 88 fL (79-100) Mean Corpuscular Hemoglobin 29 pg (25-35) 30 pg (25-35) Mean Corpuscular Hemoglobin Concent 33 g/dL (31-37) 34 g/dL (31-37) Red Cell Distribution Width 14.1 % (11.5-14.5) 13.7 % (11.5-14.5) Platelet Count 301 x10^3/uL (140-400) 264 x10^3/uL (140-400) Neutrophils (%) (Auto) 77 % (31-73) 69 % (31-73) Lymphocytes (%) (Auto) 14 % (24-48) 20 % (24-48) Monocytes (%) (Auto) 7 % (0-9) 7 % (0-9) Eosinophils (%) (Auto) 1 % (0-3) 3 % (0-3) Basophils (%) (Auto) 1 % (0-3) 1 % (0-3) Neutrophils # (Auto) 11.2 x10^3uL (1.8-7.7) 6.4 x10^3uL (1.8-7.7) Lymphocytes # (Auto) 2.0 x10^3/uL (1.0-4.8) 1.9 x10^3/uL (1.0-4.8) Monocytes # (Auto) 1.1 x10^3/uL (0.0-1.1) 0.6 x10^3/uL (0.0-1.1) Eosinophils # (Auto) 0.1 x10^3/uL (0.0-0.7) 0.3 x10^3/uL (0.0-0.7) Basophils # (Auto) 0.1 x10^3/uL (0.0-0.2) 0.0 x10^3/uL (0.0-0.2) Sodium Level 137 mmol/L (136-145) 140 mmol/L (136-145) Potassium Level 3.7 mmol/L (3.5-5.1) 3.8 mmol/L (3.5-5.1) Chloride Level 100 mmol/L (98-107) 105 mmol/L (98-107) Carbon Dioxide Level 28 mmol/L (21-32) 29 mmol/L (21-32) Anion Gap 9 (6-14) 6 (6-14) Blood Urea Nitrogen 14 mg/dL (8-26) 7 mg/dL (8-26) Creatinine 0.9 mg/dL (0.7-1.3) 0.8 mg/dL (0.7-1.3) Estimated GFR (Cockcroft-Gault) 95.5 109.4 BUN/Creatinine Ratio 16 (6-20) Glucose Level 94 mg/dL (70-99) 97 mg/dL (70-99) Lactic Acid Level 1.2 mmol/L (0.4-2.0) Calcium Level 9.4 mg/dL (8.5-10.1) 8.5 mg/dL (8.5-10.1) Total Bilirubin 1.8 mg/dL (0.2-1.0) Aspartate Amino Transf (AST/SGOT) 38 U/L (15-37) Alanine Aminotransferase (ALT/SGPT) 104 U/L (16-63) Alkaline Phosphatase 180 U/L (46-116) Total Protein 8.0 g/dL (6.4-8.2) Albumin 3.1 g/dL (3.4-5.0) Albumin/Globulin Ratio 0.6 (1.0-1.7) Lipase 64 U/L (73-393) Urine Collection Type Unknown Urine Color [place] Urine Clarity Clear Urine pH 6.0 Urine Specific [place] >=1.030 Urine Protein 30 mg/dL (NEG-TRACE) Urine Glucose (UA) Negative mg/dL (NEG) Urine Ketones (Stick) >=80 mg/dL (NEG) Urine Blood Negative (NEG) Urine Nitrite Negative (NEG) Urine Bilirubin Moderate (NEG) Urine Urobilinogen Dipstick 4.0 mg/dL (0.2 mg/dL) Urine Leukocyte Esterase Small (NEG) Urine RBC 0 /HPF (0-2) Urine WBC 0 /HPF (0-4) Urine Bacteria Moderate /HPF (0-FEW) Urine Mucus Marked /LPF Vancomycin Level Trough 14.1 mcg/mL (10.0-20.0) Vancomycin Last Dose Date 02/04/17 Vancomycin Last Dose Time 0330 Laboratory Tests Test 02/04/17 04:55 02/04/17 11:15 White Blood Count 9.3 x10^3/uL (4.0-11.0) Red Blood Count 4.10 x10^6/uL (4.30-5.70) Hemoglobin 12.4 g/dL (13.0-17.5) Hematocrit 36.1 % (39.0-53.0) Mean Corpuscular Volume 88 fL (79-100) Mean Corpuscular Hemoglobin 30 pg (25-35) Mean Corpuscular Hemoglobin Concent 34 g/dL (31-37) Red Cell Distribution Width 13.7 % (11.5-14.5) Platelet Count 264 x10^3/uL (140-400) Neutrophils (%) (Auto) 69 % (31-73) Lymphocytes (%) (Auto) 20 % (24-48) Monocytes (%) (Auto) 7 % (0-9) Eosinophils (%) (Auto) 3 % (0-3) Basophils (%) (Auto) 1 % (0-3) Neutrophils # (Auto) 6.4 x10^3uL (1.8-7.7) Lymphocytes # (Auto) 1.9 x10^3/uL (1.0-4.8) Monocytes # (Auto) 0.6 x10^3/uL (0.0-1.1) Eosinophils # (Auto) 0.3 x10^3/uL (0.0-0.7) Basophils # (Auto) 0.0 x10^3/uL (0.0-0.2) Sodium Level 140 mmol/L (136-145) Potassium Level 3.8 mmol/L (3.5-5.1) Chloride Level 105 mmol/L (98-107) Carbon Dioxide Level 29 mmol/L (21-32) Anion Gap 6 (6-14) Blood Urea Nitrogen 7 mg/dL (8-26) Creatinine 0.8 mg/dL (0.7-1.3) Estimated GFR (Cockcroft-Gault) 109.4 Glucose Level 97 mg/dL (70-99) Calcium Level 8.5 mg/dL (8.5-10.1) Vancomycin Level Trough 14.1 mcg/mL (10.0-20.0) Vancomycin Last Dose Date 02/04/17 Vancomycin Last Dose Time 0330 Brief Hospital Course Mr. Pal is a 36 old [sex] who presented with [ ]abd pain, The patient is a 36 year old male with recent history of lap carlo, ERCP and stone extraction X 2. Had drain placed with FU appt next week in office for drain removal. He reported to the ER with sharp Rt sided abdominal pain, no nausea or vomiting. The KARYNA drain was removed bedside by GS,. CT scan reassuring, Afebrile, WBc initially high on admit was on zosyn I am dcding today PO augmentin sent to his pharmacy Keep his monday appt with GS KITA RN nadja Pt seen and examined time 31 mins Discharge Information Condition at Discharge: Improved, Stable Disposition/Orders: D/C to Home No Active Prescriptions or Reported Meds BERENICE HOOPER MD Feb 04, 2017 14:12
== END 2017-02-04 15:30 | disposition home or self-care (01) | DRG 872 ==
LOC: ER 08:32 → 6 SOUTH 10:32
PROVIDERS: ADMIT Internal Medicine Hematology & Oncology; ATTEND Internal Medicine Hematology & Oncology
DX: A41.9 Sepsis, unspecified organism (principal); R17 Unspecified jaundice; K21.9 Gastro-esophageal reflux disease without esophagitis; Z80.0 Family history of malignant neoplasm of digestive organs; Z90.49 Acquired absence of other specified parts of digestive tract; Z87.81 Personal history of (healed) traumatic fracture
CPT/HCPCS: 36415; 74177; 80048; 80053; 80202; 81001; 83605; 83690; 85025; 87040; 87086; 93005; 96365; 96375; J2405; J2543; J3010; J3370; J7030; Q9967; 99285-25